=== PATIENT | male | born 1970 | race Caucasian/White ===

== ENCOUNTER 2019-01-27 10:17 | Emergency (ER) | payer OTHER ==
[2019-01-27] MEDS ORDERED: KETOROLAC 30 MG/ML INJ ONE (10:58)
--- NOTE | 2019-01-27 11:35 | RAD REPORT ---
EXAM DESCRIPTION: RAD - Knee Right 3 View - 01/27/2019 11:18 am CLINICAL HISTORY: injury, pain COMPARISON: No comparisons FINDINGS: Mild medial compartment space narrowing is seen. No fracture, dislocation or joint effusio n.
--- NOTE | 2019-01-27 11:50 | EDPHYS ---
Physician Documentation [facility] Name: Jerome Dove Age: 48 yrs Sex: Male : 1970 Arrival Date: 01/27/2019 Time: 10:23 Bed 12 Private MD: ED Physician Jose C Ty HPI: 01/27 10:39 This 48 yrs old Male presents to ER via Wheelchair with complaints of Knee jmm Pain. 10:39 The patient presents with an injury, pain. Onset: The symptoms/episode began/occurred jmm acutely. 10:43 Modifying factors: The symptoms are alleviated by remaining still, the symptoms are jmm aggravated by movement, weight bearing. Associated signs and symptoms: Pertinent negatives fever, numbness. This is a 48 year old male with a history of GERD that presents to the ED with complaints of right medial knee pain after jumping down from an 18 [address]. Patient states he twisted his knee and felt a pop. Patient denies other injury. . Historical: - Allergies: 10:29 No Known Allergies; hb - Home Meds: 10:29 Prilosec Oral [Active]; hb - PMHx: 10:29 GERD; hb - PSHx: 10:29 Hand - bilat; hb - Immunization history:: Adult Immunizations up to date. - Social history:: Smoking status: Patient/guardian denies using tobacco. - Ebola Screening: : No symptoms or risks identified at this time. ROS: 10:43 Constitutional: Negative for fever, chills, and weight loss. jmm 10:43 MS/extremity: Positive for injury or acute deformity, pain. 10:43 All other systems are negative. Exam: 10:43 Constitutional: This is a well developed, well nourished patient who is awake, alert, jmm and in no acute distress. Head/Face: atraumatic. Eyes: EOMI, no conjunctival erythema appreciated ENT: Moist Mucus Membranes Neck: Trachea midline, Supple Chest/axilla: Normal chest wall appearance and motion. Cardiovascular: Regular rate and rhythm. No edema appreciated Respiratory: Normal respirations, no respiratory distress appreciated Abdomen/GI: Non distended, soft Back: Normal ROM Skin: General appearance color normal 10:43 Musculoskeletal/extremity: left medial knee is TTP, no obvious deformity appreciated, compartments are soft, NVI. 10:43 Skin: Appearance: Color: normal in color. 10:43 Neuro: Motor: is normal. 10:43 Psych: Behavior/mood is pleasant, cooperative. Vital Signs: 10:29 BP 134 / 94; Pulse 81; Resp 16; Temp 97.8; Pulse Ox 100% on R/A; Weight 82.55 kg; hb Height 5 ft. 6 in. (167.64 cm); Pain 6/10; 10:29 Body Mass Index 29.38 (82.55 kg, 167.64 cm) hb Procedures: 11:43 Splinting: Splint applied to right leg using knee immobilizer, applied by tech. mauricio Examined by me, post splint application: neurovascular intact, 2+ distal pulses palpable, brisk capillary refill noted, Patient tolerated well. MDM: 10:38 Patient medically screened. [facility] 11:43 Data reviewed: vital signs, nurses notes. Counseling: I had a detailed discussion with mauricio the patient and/or guardian regarding: the historical points, exam findings, and any diagnostic results supporting the discharge/admit diagnosis, radiology results, the need for outpatient follow up, to return to the emergency department if symptoms worsen or persist or if there are any questions or concerns that arise at home. ED course: xray is negative. Patient is advised to follow up with ortho for reevaluation. patient is otherwise given strict return precautions. patient understood and agrees with the plan of care. . 01/27 10:39 Order name: Knee Right 3 View XRAY [facility] 01/27 11:42 Order name: RAD; Complete Time: 11:43 EDKS 01/27 11:43 Order name: Knee Immobilizer; Complete Time: 12:00 [facility] 01/27 12:01 Order name: Crutches; Complete Time: 12:01 ss Administered Medications: 11:00 Drug: Ketorolac 30 mg Route: IM; Site: right deltoid; em 12:00 Follow up: Response: No adverse reaction; Pain is decreased ss Disposition: 15:19 Co-signature as Attending Physician, Jose C Ty MD I agree with the assessment and magda plan of care. Disposition: 01/27/19 11:45 Discharged to Home. Impression: Internal derangement of knee. - Condition is Stable. - Discharge Instructions: Knee Pain. - Prescriptions for Ultracet 37.5- 325 mg Oral Tablet - take 1 tablet by ORAL route every 6 hours - for up to 5 days; do not exceed 8 tablets per day.; 20 tablet. - Medication Reconciliation Form, Thank You Letter, Antibiotic Education, Prescription Opioid Use form. - Follow up: Vitor Doran MD; When: 2 - 3 days; Reason: Recheck today's complaints, Continuance of care, Re-evaluation by your physician. Signatures: Dispatcher [employer] EDMS Jose C Ty MD MD cha Mickail, Joel, PA PA jmm Munoz, Edgar, WELDER JOURNEYMAN WELDER JOURNEYMAN Rica Nieto RN RN ss Izabela Hidalgo RN RN Corrections: (The following items were deleted from the chart) 12:08 11:45 01/27/2019 11:45 Discharged to Home. Impression: Internal derangement of knee. ss Condition is Stable. Forms are Medication Reconciliation Form, Thank You Letter, Antibiotic Education, Prescription Opioid Use. Follow up: Dr. Vitor Doran; When: 2 - 3 days; Reason: Recheck today's complaints, Continuance of care, Re-evaluation by your physician. mauricio
--- NOTE | 2019-01-27 11:50 | ER ---
Nurse's Notes [facility] Name: Jerome Dove Age: 48 yrs Sex: Male : 1970 Arrival Date: 01/27/2019 Time: 10:23 Bed 12 Private MD: Diagnosis: Internal derangement of knee Presentation: 01/27 10:27 Presenting complaint: Right knee pain after stepping down from 18 [address] yesterday. hb Unable to bear weight. Transition of care: patient was not received from another setting of care. Onset of symptoms was January 26, 2019. Risk Assessment: Do you want to hurt yourself or someone else? Patient reports no desire to harm self or others. Initial Sepsis Screen: Does the patient meet any 2 criteria? No. Patient's initial sepsis screen is negative. Care prior to arrival: Motrin 3 hrs FORECLOSURE SPECIALIST. 10:27 Method Of Arrival: Wheelchair hb 10:27 Acuity: CHAVA 4 hb 10:30 Initial Sepsis Screen: Does the patient have a suspected source of infection? No. ss Patient's initial sepsis screen is negative. Historical: - Allergies: 10:29 No Known Allergies; hb - Home Meds: 10:29 Prilosec Oral [Active]; hb - PMHx: 10:29 GERD; hb - PSHx: 10:29 Hand - bilat; hb - Immunization history:: Adult Immunizations up to date. - Social history:: Smoking status: Patient/guardian denies using tobacco. - Ebola Screening: : No symptoms or risks identified at this time. Screenin:30 Abuse screen: Denies threats or abuse. Denies injuries from another. Nutritional ss screening: No deficits noted. Tuberculosis screening: No symptoms or risk factors identified. Never had TB. Fall Risk None identified. Assessment: 10:30 General: Appears in no apparent distress. comfortable, Behavior is calm, cooperative. ss Pain: Complains of pain in right knee Pain currently is 6 out of 10 on a pain scale. Quality of pain is described as aching, tender, Pain began yesterday Is continuous. Neuro: Level of Consciousness is awake, alert, obeys commands, Oriented to person, place, time, situation. Respiratory: Airway is patent Respiratory effort is even, unlabored. Derm: Skin is pink, warm \T\ dry. normal. Musculoskeletal: Circulation, motion, and sensation intact. Range of motion: intact in all extremities, Swelling absent. 12:08 Reassessment: Patient appears in no apparent distress at this time. Patient and/or ss family updated on plan of care and expected duration. Pain level reassessed. Patient is alert, oriented x 3, equal unlabored respirations, skin warm/dry/pink. Patient states feeling better. Vital Signs: 10:29 BP 134 / 94; Pulse 81; Resp 16; Temp 97.8; Pulse Ox 100% on R/A; Weight 82.55 kg; hb Height 5 ft. 6 in. (167.64 cm); Pain 6/10; 10:29 Body Mass Index 29.38 (82.55 kg, 167.64 cm) hb ED Course: 10:23 Patient arrived in ED. rg4 10:28 Triage completed. 10:29 Arm band placed on. 10:33 Danis Abraham PA is PHCP. [facility] 10:33 Jose C Ty MD is Attending Physician. [facility] 11:27 X-ray completed. Portable x-ray completed in exam room. Patient tolerated procedure mh1 well. 11:30 Patient has correct armband on for positive identification. Bed in low position. Call ss light in reach. 11:30 No provider procedures requiring assistance completed. Patient did not have IV access ss during this emergency room visit. Knee immobilizer applied on right knee. 11:44 Vitor Doran MD is Referral Physician. [facility] 12:00 Rica Ford RN is Primary Nurse. ss Administered Medications: 11:00 Drug: Ketorolac 30 mg Route: IM; Site: right deltoid; em 12:00 Follow up: Response: No adverse reaction; Pain is decreased Outcome: 11:45 Discharge ordered by . [facility] 12:07 Discharged to home ambulatory. 12:07 Condition: good 12:07 Discharge instructions given to patient, family, Instructed on discharge instructions, follow up and referral plans. crutch walking, Demonstrated understanding of instructions, follow-up care, medications, crutch walking. 12:08 Patient left the ED. Signatures: Danis Abraham PA PA [facility] Randa Bullock 1 Mitchell Carballo, METALWORKING INSTRUCTOR METALWORKING INSTRUCTOR Rica Ford RN RN Izabela Hidalgo RN RN hb Rupert, Nancy rg4
[2019-01-27 12:20] VITALS: BP 134/94; TEMP 97.8; O2SAT 100
== END 2019-01-27 12:08 | disposition home or self-care (01) ==
LOC: ER 10:17
DX: M23.91 Unspecified internal derangement of right knee (principal); K21.9 Gastro-esophageal reflux disease without esophagitis; X58.XXXA Exposure to other specified factors, initial encounter; Y93.89 Activity, other specified; Y92.9 Unspecified place or not applicable
CPT/HCPCS: 96372; 99283

== ENCOUNTER 2020-03-24 23:24 | Emergency (ER) | payer OTHER ==
[2020-03-24] MEDS ORDERED: EPINEPHrine 1 MG/10 ML SYR IV ONE (23:25)
--- NOTE | 2020-03-24 23:50 | ER ---
Nurse's Notes [facility] Name: Jerome Dove Age: 49 yrs Sex: Male : 1970 Arrival Date: 03/24/2020 Time: 23:28 Bed 2 Private MD: Diagnosis: Cardiac arrest Presentation: 03/24 23:20 Chief complaint: EMS states: called out for seizure like activity after having sex, em went unresponsive then significant other called 911, significant other denies hx of seizures, toned out at 2240, 4 rounds of epi given MOTION PICTURE COMMENTATOR, Andres machine doing compressions. 23:20 Method Of Arrival: EMS: [facility] em 23:20 Care prior to arrival: Narciso Tube size 4 CPR via thumper performed by EMS and is still em in progress Medication(s) given: Epi x 4. Compressions began at 22:40. 23:20 Acuity: CHAVA 1 em Historical: - Allergies: 23:28 No Known Allergies; sg - PMHx: 23:28 GERD; sg - PSHx: 23:28 Hand - bilat; sg Assessment: 23:20 Cardiac rhythm is asystole. em 23:23 Reassessment: pulse check, no central pulse palpable, asystole on monitor. em 23:27 Reassessment: pulse check, no central pulse palpable, asystole on monitor. em 23:30 Reassessment: Pt asystole, no pulse. Time of 2330. ea 03/25 00:01 Reassessment: contact info for pt father Jerome Dove [phone]. sg 00:08 Reassessment: spoke with Amy at [employer], will wait until is notified of pt em status before accepting pt, reference # [id number], will call back later this morning. 01:00 Reassessment: PD at bedside. ea Vital Signs: 03/24 23:25 Pulse 0; Resp 16 A; Temp 98.7(R); em ED Course: 23:20 Inserted saline lock: 20 gauge in right antecubital area, using aseptic technique. ea 23:20 Maintain EMS IV. Dressing intact. Good blood return noted. Site clean \T\ dry. Gauge \T\ em site: 20 G LAC. 23:28 Patient arrived in ED. sg 23:34 Triage completed. em 23:38 Ross Tam MD is Attending Physician. ma2 23:48 Ross Tam MD is Pronouncing Provider. ma2 Administered Medications: 23:25 Drug: EPINEPHrine 0.1mg/mL 1:10,000 1 mg Route: IVP; Site: left antecubital; em 23:30 Follow up: Response: No change in condition em 23:28 Drug: EPINEPHrine 0.1mg/mL 1:10,000 1 mg Route: IVP; Site: left antecubital; em 23:30 Follow up: Response: No change in condition em Outcome: 03/25 01:53 Patient left the ED. ea Signatures: Freddy Childs RN RN Mitchell Wolff RN RN Kiley Burgess RN Ross Lugo ea, MD MD ne2 Corrections: (The following items were deleted from the chart) 03/24 23:39 23:20 Chief complaint: EMS states: called out for seizure like activity after having em sex, went unresponsive then called 911, significant other denies hx of seizures, toned out at 2240, 4 round of epi given MOTION PICTURE COMMENTATOR, Andres machine doing compressions em
--- NOTE | 2020-03-24 23:50 | EDPHYS ---
Physician Documentation [facility] Name: Jerome Dove Age: 49 yrs Sex: Male : 1970 Arrival Date: 03/24/2020 Time: 23:28 Bed 2 Private MD: ED Physician Ross Tam HPI: 03/24 23:38 This 49 yrs old Male presents to ER via EMS with complaints of CPR. ma2 23:38 Preceding the arrest, the patient collapsed. The arrest occurred at home. Pre-hospital ma2 course: The arrest was witnessed by family. EMS care prior to arrival: initiation of ACLS, peripheral IV, intubation orally, oxygen, 100% by ET tube. EMS call time was 10:40. EMS on scene time was ACLS has been in progress for 30 minutes. The patient has not experienced similar symptoms in the past. has hx of NH was at home, collapsed while doing sex. whne ems arrived he was in asystole, cpr started and continued for duration of 30 min until arrival to hospital, with no ROSC or signs of life. Historical: - Allergies: 23:28 No Known Allergies; sg - PMHx: 23:28 GERD; sg - PSHx: 23:28 Hand - bilat; sg ROS: 23:38 Unable to obtain ROS due to cpr. ma2 Exam: 23:38 Skin: Warm, dry with normal turgor. Normal color with no rashes, no lesions, and no ma2 evidence of cellulitis. 23:38 Constitutional: The patient appears no pulse, no sign of life 23:38 Head/face: Exam is negative for acute changes, obvious evidence of injury or deformity, beavers signs, contusion, laceration(s), swelling. 23:38 Eyes: Pupils: dilated, bilaterally, are fixed and dilated. 23:38 ENT: Exam is negative for earache, ear swelling, TM abnormalities, dental infection. 23:38 Chest/axilla: Inspection: normal, Palpation: is normal, Axilla: are normal. 23:38 Cardiovascular: no pulse, asystole on monitor . 23:38 Respiratory: no spontaneous breathing, he is intubated w monserrat tube and bag ventilated. with good equal air entry bilateral . 23:38 Abdomen/GI: Inspection: abdomen appears normal, bruising, is not seen, distension, is not seen, scar(s), are not appreciated. Vital Signs: 23:25 Pulse 0; Resp 16 A; Temp 98.7(R); em Procedures: 23:38 CPR: See CPR flow sheet. Initial patient assessment: unresponsive, pupils fixed \T\ ma2 dilated, no respiratory effort, intubated, Ambu ventilation, pulses absent w/ compressions, The presenting cardiac rhythm is asystole. the patient was intubated prior to arrival, Compressions: began prior to arrival. Meds given: Epinephrine despite ED evaluation and treatment, the patient . CPR was stopped at 11:30. MDM: 23:38 Patient medically screened. ma2 23:38 Differential diagnosis: arrythmia, cardiac arrest, respiratory arrest. Data reviewed: ma2 vital signs, nurses notes. Counseling: I had a detailed discussion with the patient and/or guardian regarding: the historical points, exam findings, and any diagnostic results supporting the discharge/admit diagnosis, the presence of at least one elevated blood pressure reading (>120/80) during this emergency department visit, the need for outpatient follow up. Response to treatment: There is no appreciated change of the patient's symptoms at this time. ED course: no family member available in er . 03/24 23:32 Order name: glucometer results - FOR PT WITH NO ID [id number] Administered Medications: 23:25 Drug: EPINEPHrine 0.1mg/mL 1:10,000 1 mg Route: IVP; Site: left antecubital; em 23:30 Follow up: Response: No change in condition em 23:28 Drug: EPINEPHrine 0.1mg/mL 1:10,000 1 mg Route: IVP; Site: left antecubital; em 23:30 Follow up: Response: No change in condition em Disposition: 23:38 . ma2 Disposition: Patient pronounced on 03/24/20 11:30 by Ross Tam. Impression: Cardiac arrest. Signatures: Dispatcher [employer] EDMS Freddy Childs RN Mitchell Hernandez RN RN em Antunez, Elena, RN RN ea Alzahri, Mohammad, MD MD in2 Corrections: (The following items were deleted from the chart) 03/25 01:53 03/24 23:49 03/24/2020 23:49 Patient pronounced on 03/24/2020 at 11:30 by kayley Tam. Impression: Cardiac arrest. ma2
[2020-03-25 01:57] VITALS: TEMP 98.7
== END 2020-03-25 01:53 ==
LOC: ER 23:24
DX: I46.9 Cardiac arrest, cause unspecified (principal)
CPT/HCPCS: 36415; 82947; 96374; 92950; 99285; J0171